=== PATIENT | female | born 1985 | race African-American/Black ===

== ENCOUNTER 2016-06-11 19:20 | Inpatient (IN) | payer MEDICAID, OTHER ==
[~2016-06-11] VITALS: Ht 165.1 cm; Wt 118.8 kg
[2016-06-11 20:47] LABS: APPEARANCE,URINE CLEAR (CLEAR); GLUCOSE, URINE (UA) NEGATIVE (NEGATIVE); KETONES,URINE >=80 mg/dL (NEGATIVE); LEUKOCYTE ESTERASE ,URINE SMALL (NEGATIVE); OCCULT BLOOD,URINE NEGATIVE (NEGATIVE); PROTEIN,URINE TRACE (NEGATIVE)
[2016-06-11 21:05] LABS: ADD UA MICROSCOPIC YES
[2016-06-11 21:06] LABS: RBC,URINE 0-2 /HPF (0-2); SQUAMOUS EPITHELIAL CELL,UR Moderate /LPF (None Seen)
[2016-06-11] MEDS ORDERED: RINGERS SOLUTION,LACTATED 1,000 ML IV ONE (22:56)
[2016-06-11] MEDS ORDERED: RINGERS SOLUTION,LACTATED 1,000 ML IV PRN (22:58)
[2016-06-11] MEDS ORDERED: OXYTOCIN 30 UNITS/LACT RINGERS 500 ML IV ONE (22:58)
[2016-06-11] MEDS ORDERED: OXYGEN THERAPY IH PRN (23:00)
[2016-06-11] MEDS: RINGERS SOLUTION,LACTATED 1,000 ML IV SCH ×2 (23:05→23:53)
[2016-06-11] MEDS: FentaNYL CITRATE-PF 100 MCG/2 ML VIAL IVP PRN ×2 (23:20→23:47)
[2016-06-11 23:45] LABS: HEMATOCRIT 29.7 % (36-46); HEMOGLOBIN 9.9 g/dL (12.0-16.0); LYMPHOCYTES # (AUTO) 1.6 K/uL (1.0-4.8); LYMPHOCYTES % (AUTO) 10.7 % (22.0-44.0); MEAN CORPUSCULAR HEMOGLOBIN 28.6 pg (26.0-34.0); MEAN CORPUSCULAR HGB CONC 33.4 G/dL (31.0-37.0); MEAN CORPUSCULAR VOLUME 86 fL (80-100); MONOCYTES # (AUTO) 0.9 K/uL (0.1-1.0); MONOCYTES % (AUTO) 5.9 % (2.0-9.0); NEUTROPHILS # (AUTO) 12.4 K/uL (1.8-7.7); NEUTROPHILS % (AUTO) 82.8 % (40.0-70.0); RED BLOOD CELL COUNT(AUTO) 3.47 MIL/uL (4.00-5.20); RED CELL DISTRIBUTION WIDTH 13.4 % (11.5-14.5)
[2016-06-12] MEDS ORDERED: MISOPROSTOL 100 MCG TABLET ONE ×3 (00:29→01:23)
[2016-06-12] MEDS ORDERED: MISOPROSTOL 100 MCG TABLET VG ONE ×3 (00:29→01:23)
[2016-06-12] MEDS: FentaNYL CITRATE-PF 100 MCG/2 ML VIAL IVP PRN ×4 (00:58→04:16)
[2016-06-12 02:20] LABS: RUBELLA SCREEN (IGG) IMMUNE (IMMUNE)
[2016-06-12] MEDS ORDERED: METHYLERGONOVINE MALEATE 0.2 MG/ML VIAL ONE (02:24)
[2016-06-12] MEDS ORDERED: OXYTOCIN 20 UNITS in RINGERS SOLUTION,LACTATED 1,000 ML IV SCH (05:01)
[2016-06-12] MEDS ORDERED: SENNA/DOCUSATE SODIUM 187-50 MG TABLET PO PRN (05:15)
[2016-06-12] MEDS ORDERED: GLYCERIN/WITCH HAZEL LEAF 40 PADS JAR TP PRN (05:15)
[2016-06-12] MEDS ORDERED: OxyCODONE HCL/ACETAMINOPHEN 5-325 MG TABLET PO PRN ×2 (05:15)
[2016-06-12] MEDS ORDERED: BENZOCAINE 20%/MENTHOL 56 GM SPRAY CANISTER TP PRN (05:15)
[2016-06-12] MEDS ORDERED: MAGNESIUM HYDROXIDE SUSPENSION 30 ML UDCUP PO PRN (05:15)
[2016-06-12] MEDS ORDERED: MEASLES/MUMPS/RUBELLA VACCINE, LIVE 0.5 ML/VIAL SQ ONE (05:15)
[2016-06-12 05:54] VITALS: BP 106/57
[2016-06-12] MEDS ORDERED: REGLAN (06:00)
[2016-06-12] MEDS: IBUPROFEN 800 MG TABLET PO PRN ×3 (06:17→09:06)
[2016-06-12] MEDS ORDERED: DOXYCYCLINE 100 MG in DEXTROSE 5%-WATER 100 ML IV ONE (10:30)
[2016-06-12 10:43] LABS: BASOPHILS % (AUTO) 0.1 % (0.0-2.0); EOSINOPHILS % (AUTO) 0.4 % (1.0-6.0); LYMPHOCYTES # (AUTO) 1.8 K/uL (1.0-4.8); LYMPHOCYTES % (AUTO) 10.1 % (22.0-44.0); MEAN CORPUSCULAR HEMOGLOBIN 27.4 pg (26.0-34.0); MEAN CORPUSCULAR HGB CONC 32.3 G/dL (31.0-37.0); MEAN CORPUSCULAR VOLUME 85 fL (80-100); MONOCYTES # (AUTO) 0.8 K/uL (0.1-1.0); MONOCYTES % (AUTO) 4.3 % (2.0-9.0); NEUTROPHILS # (AUTO) 15.1 K/uL (1.8-7.7); NEUTROPHILS % (AUTO) 85.1 % (40.0-70.0); RED BLOOD CELL COUNT(AUTO) 3.66 MIL/uL (4.00-5.20); RED CELL DISTRIBUTION WIDTH 13.6 % (11.5-14.5); WHITE BLOOD COUNT (AUTO) 17.7 K/uL (4.5-11.0)
[2016-06-12] MEDS ORDERED: OXYTOCIN 10 UNITS/ML VIAL IM ONE (11:24)
[2016-06-12] MEDS ORDERED: MIDAZOLAM HCL 2 MG/2 ML VIAL IVP ONE (11:24)
[2016-06-12] MEDS ORDERED: FentaNYL CITRATE-PF 100 MCG/2 ML VIAL IVP ONE (11:24)
[2016-06-12] MEDS ORDERED: PROPOFOL 1% 20 ML VIAL IVP ONE (11:24)
[2016-06-17 20:26] LABS: URIN CARBOXY-THC GC/MS CONFIRM 140 ng/mL (Cutoff=10)
== END 2016-06-12 11:25 | disposition left against medical advice (07) | DRG 541 ==
LOC: OBSVTOIN 19:20 → 4S 19:20
PROVIDERS: ADMIT Obstetrics & Gynecology; ATTEND Obstetrics & Gynecology
PROC: 10E0XZZ Delivery of Products of Conception, External Approach (ICD-10-PCS; principal; 2016-06-12)
PROC: 10D17ZZ Extraction of Products of Conception, Retained, Via Natural or Artificial Opening (ICD-10-PCS; 2016-06-12)
DX: O02.1 Missed abortion (principal); O60.13X0 Preterm labor second trimester with preterm delivery third trimester, not applicable or unspecified; O72.0 Third-stage hemorrhage; Z37.1 Single stillbirth; Z3A.21 21 weeks gestation of pregnancy
CPT/HCPCS: 76811; 80307; 80349; 86592; 86762; 86900; 87086; 87340; 88307; J2210; J2250; J2590; J2704; J3010; J3490; J7060; J7120

== ENCOUNTER 2017-01-05 04:08 | Emergency (ER) | payer OTHER ==
[~2017-01-05] VITALS: Ht 165.1 cm; Wt 88.6 kg
[~2017-01-05 04:08] MED LIST: REGLAN
[2017-01-05 04:21] VITALS: BP 145/101
[2017-01-05] MEDS ORDERED: MORPHINE SULFATE 4 MG/ML SYRINGE IM ONE (04:30)
== END 2017-01-05 04:57 | disposition home or self-care (01) ==
LOC: EMS 04:08
DX: K04.7 Periapical abscess without sinus (principal); Z88.0 Allergy status to penicillin; Z88.1 Allergy status to other antibiotic agents; Z91.040 Latex allergy status
CPT/HCPCS: 96372; 99283; J2270

== ENCOUNTER 2017-02-12 15:34 | Emergency (ER) | payer OTHER ==
[~2017-02-12] VITALS: Ht 165.1 cm; Wt 93.6 kg
[2017-02-12] MEDS ORDERED: ACETAMINOPHEN 325 MG TABLET PO ONE (16:15)
[2017-02-12] MEDS ORDERED: ALBUTEROL SULFATE 2.5 MG/0.5 ML NEB SOLUTION NEB ONE (16:40)
[2017-02-12 16:44] LABS: INFLUENZA TYPE A NEGATIVE FOR TYPE A (NEGATIVE); INFLUENZA TYPE B NEGATIVE FOR TYPE B (NEGATIVE)
[2017-02-12 16:45] LABS: BASOPHILS % (AUTO) 0.4 % (0.0-2.0); EOSINOPHILS % (AUTO) 0 % (1.0-6.0); HEMATOCRIT 37.9 % (36-46); LYMPHOCYTES # (AUTO) 0.7 K/uL (1.0-4.8); LYMPHOCYTES % (AUTO) 10.2 % (22.0-44.0); MEAN CORPUSCULAR HEMOGLOBIN 28.5 pg (26.0-34.0); MEAN CORPUSCULAR HGB CONC 34.2 G/dL (31.0-37.0); MEAN CORPUSCULAR VOLUME 83 fL (80-100); MONOCYTES # (AUTO) 0.7 K/uL (0.1-1.0); MONOCYTES % (AUTO) 9.8 % (2.0-9.0); NEUTROPHILS # (AUTO) 5.5 K/uL (1.8-7.7); NEUTROPHILS % (AUTO) 79.6 % (40.0-70.0); PLATELET COUNT (AUTO) 235 K/uL (150-450); RED BLOOD CELL COUNT(AUTO) 4.56 MIL/uL (4.00-5.20); RED CELL DISTRIBUTION WIDTH 13.5 % (11.5-14.5)
[2017-02-12 17:01] LABS: ANION GAP 13 mmol/L (8-16); CALCIUM, TOTAL 8.9 mg/dL (8.8-10.5); CARBON DIOXIDE 23 mmol/L (22-29); CHLORIDE 101 mmol/L (98-107); CREATININE 0.88 mg/dL (0.60-1.30); GLOMERULAR FILTR. RATE CALC > 60 mL/min (>60); GLUCOSE,RANDOM 113 mg/dL (70-110); POTASSIUM 3.1 mmol/L (3.5-5.1); SODIUM SERUM 137 mmol/L (136-145); UREA NITROGEN, BLOOD 7 mg/dL (7-18)
[2017-02-12 17:06] LABS: ALANINE AMINOTRANSFERASE 23 U/L (12-78); ALBUMIN 3.3 g/dL (3.4-5.0); ALKALINE PHOSPHATASE 89 U/L (46-116); ASPARTATE AMINOTRANSFERASE 18 U/L (15-37); BILIRUBIN,TOTAL 0.4 mg/dL (0.1-1.0); TOTAL PROTEIN, SERUM 7.6 g/dL (6.4-8.2)
[2017-02-12] MEDS ORDERED: DEXAMETHASONE SOD PHOS 4 MG/ML 5 ML VIAL IVP ONE (18:00)
[2017-02-12] MEDS ORDERED: LEVOFLOXACIN 500 MG/D5% WATER 100 ML IV ONE (18:00)
[2017-02-12] MEDS ORDERED: POTASSIUM CHLORIDE 20 MEQ ER TABLET PO ONE (18:15)
[2017-02-12] MEDS ORDERED: TraMADol HCL 50 MG TABLET PO ONE (18:15)
[2017-02-12 19:28] VITALS: BP 133/76
== END 2017-02-12 19:43 | disposition home or self-care (01) ==
LOC: EMS 15:39
DX: J40 Bronchitis, not specified as acute or chronic (principal); M79.1 Myalgia; Z88.0 Allergy status to penicillin; Z91.040 Latex allergy status
CPT/HCPCS: 36415; 71045; 80053; 85025; 87804; 94640; 96374; 96375; 99285; J1100; J1956; J7613

== ENCOUNTER 2017-03-25 20:44 | Emergency (ER) | payer OTHER ==
[~2017-03-25] VITALS: Ht 165.1 cm; Wt 110.0 kg
[2017-03-25] MEDS ORDERED: PNV1TABL58 PO (20:51)
[2017-03-25 21:46] LABS: BASOPHILS % (AUTO) 0.2 % (0.0-2.0); EOSINOPHILS % (AUTO) 3.6 % (1.0-6.0); HEMATOCRIT 37.4 % (36-46); HEMOGLOBIN 12.5 g/dL (12.0-16.0); LYMPHOCYTES # (AUTO) 3.3 K/uL (1.0-4.8); MEAN CORPUSCULAR HEMOGLOBIN 28.5 pg (26.0-34.0); MEAN CORPUSCULAR HGB CONC 33.5 G/dL (31.0-37.0); MEAN CORPUSCULAR VOLUME 85 fL (80-100); MONOCYTES # (AUTO) 0.7 K/uL (0.1-1.0); MONOCYTES % (AUTO) 6.9 % (2.0-9.0); NEUTROPHILS # (AUTO) 5.1 K/uL (1.8-7.7); NEUTROPHILS % (AUTO) 54.3 % (40.0-70.0); PLATELET COUNT (AUTO) 315 K/uL (150-450); RED BLOOD CELL COUNT(AUTO) 4.39 MIL/uL (4.00-5.20); RED CELL DISTRIBUTION WIDTH 14.7 % (11.5-14.5)
[2017-03-25 22:58] VITALS: BP 133/78
== END 2017-03-25 22:59 | disposition home or self-care (01) ==
LOC: EMS 20:46
DX: O03.4 Incomplete spontaneous abortion without complication (principal); Z88.0 Allergy status to penicillin; Z3A.12 12 weeks gestation of pregnancy
CPT/HCPCS: 76801; 76817; 86901; 99285